=== PATIENT | male | born 1970 | race Two or more races ===

== ENCOUNTER 2017-06-12 08:14 | Emergency (ER) | payer MEDICAID ==
[~2017-06-12] VITALS: Ht 160 cm; Wt 93.0 kg
[2017-06-12 08:32] VITALS: BP 158/99
[2017-06-12] MEDS ORDERED: IPRATROPIUM BROM 0.5 MG/2.5ML INH SOL NEB ONE (08:45)
[2017-06-12] MEDS ORDERED: ALBUTEROL SULF 2.5 MG/0.5ML(0.5%) NEB SOLN NEB ONE (08:45)
[2017-06-15] MEDS ORDERED: LISI10TA6 PO (17:08)
[2017-06-15] MEDS ORDERED: ATOR20TA50 PO (17:08)
[2017-06-15] MEDS ORDERED: ATEN-60 PO (17:08)
[2017-06-15] MEDS ORDERED: GABA-339 PO (17:09)
[2017-06-18] MEDS ORDERED: AZI250T PO (13:31)
== END 2017-06-12 09:02 | disposition home or self-care (01) ==
LOC: ER 08:14
DX: J40 Bronchitis, not specified as acute or chronic (principal); F17.210 Nicotine dependence, cigarettes, uncomplicated; I10 Essential (primary) hypertension
CPT/HCPCS: 94640